=== PATIENT | male | born 1975 | race Caucasian/White ===

== ENCOUNTER 2016-11-09 20:58 | Emergency (ER) | payer SELFPAY ==
[~2016-11-09] VITALS: Ht 190.5 cm; Wt 127.0 kg
[2016-11-09 21:05] VITALS: BP 135/100
--- NOTE | 2016-11-09 21:30 | NUR ---
TO ER BED 6
[2016-11-09 21:42] LABS: BILIRUBIN,URINE NEGATIVE (NEGATIVE); BLOOD, URINE NEGATIVE (NEGATIVE); LEUKOCYTE ESTERASE ,URINE NEGATIVE (NEGATIVE); NITRITE, URINE NEGATIVE (NEGATIVE); PROTEIN,URINE NEGATIVE (NEGATIVE); UGLUCOSE NEGATIVE (NEGATIVE); UROBILINOGEN,URINE 0.2 EU/dL (0.2 - 1)
[2016-11-09 21:43] LABS: APPEARANCE,URINE CLEAR (CLEAR); COLOR,URINE STRAW (YELLOW)
--- NOTE | 2016-11-09 21:43 | NUR ---
41 Y/O M W/C/O S/P FALL AT 1800 TODAY FROM THE ROOF. DENIES ANY LOC, OR DIZYNESS. PT ALERT AND ORIENTED X 4, NO S/S OF DISTRESS NOTED.
[2016-11-09 21:45] LABS: BACTERIA,URINE None Seen /HPF (None Seen); RBC,URINE NONE SEEN /HPF (0-5); SQUAMOUS EPITHELIAL CELL,UR 0-3 (FEW) /LPF (0-3 (FEW)); WBC,URINE NONE SEEN /HPF (0-5)
[2016-11-09] MEDS ORDERED: HYDROmorphone PFS 2 MG/ML SYR IM ONE (22:05)
--- NOTE | 2016-11-09 23:08 | NUR ---
PT RESTING IN BED AWATING FOR CT RESULTS, NO S/S OF DISTRESS NOTED. VSS.
[2016-11-09 23:34] VITALS: BP 119/76
--- NOTE | 2016-11-09 23:34 | NUR ---
Patient discharged with v/s stable. Written and verbal after care instructions given and explained. Patient alert, oriented and verbalized understanding of instructions. Ambulatory with steady gait. All questions addressed prior to discharge. ID band removed. Patient advised to follow up with PMD OR RETURN TO ER IF CONDITION WORSENS. Rx of PERCOCET given. Patient educated on indication of medication including possible reaction and side effects. Opportunity to ask questions provided and answered.
== END 2016-11-09 23:34 | disposition home or self-care (01) ==
LOC: MED 20:58
DX: S20.212A Contusion of left front wall of thorax, initial encounter (principal); R03.0 Elevated blood-pressure reading, without diagnosis of hypertension; M79.602 Pain in left arm; W11.XXXA Fall on and from ladder, initial encounter; Y93.89 Activity, other specified; Y92.89 Other specified places as the place of occurrence of the external cause; Y99.8 Other external cause status
CPT/HCPCS: 71250; 72125; 74176; 81001; 96372; 99285; J1170; J7030

== ENCOUNTER 2016-11-13 21:03 | Emergency (ER) | payer SELFPAY ==
[~2016-11-13] VITALS: Ht 190.5 cm; Wt 122.5 kg
[2016-11-13 21:19] VITALS: BP 150/93
--- NOTE | 2016-11-13 22:52 | NUR ---
PATIENT LEFT WITHOUT BEING SEEN BY DR. FRAGA. NO FURTHER CARE PROVIDED FOR PATIENT.
== END 2016-11-13 22:52 | disposition left against medical advice (07) ==
LOC: MED 21:03
DX: R52 Pain, unspecified (principal); Z53.21 Procedure and treatment not carried out due to patient leaving prior to being seen by health care provider

== ENCOUNTER 2016-11-14 21:32 | Emergency (ER) | payer SELFPAY ==
[~2016-11-14] VITALS: Ht 190.5 cm; Wt 122.5 kg
[2016-11-14 21:46] VITALS: BP 151/85
--- NOTE | 2016-11-14 22:20 | NUR ---
PATIENT LEFT WITHOUT BEING SEEN BY DR. CHENG. NO FURTHER CARE PROVIDED FOR PATIENT.
--- NOTE | 2016-11-14 23:04 | NUR ---
Rihcard cueto in [facility] - 11/14/16 at 2334 by JOÃO PATIENT LEFT WITHOUT BEING SEEN BY DR. CHENG. NO FURTHER CARE PROVIDED FOR PATIENT.
== END 2016-11-14 22:20 | disposition left against medical advice (07) ==
LOC: MED 21:32
DX: Z91.81 History of falling (principal); Z53.21 Procedure and treatment not carried out due to patient leaving prior to being seen by health care provider

== ENCOUNTER 2020-04-11 20:00 | Emergency (ER) | payer MEDICAID ==
[~2020-04-11] VITALS: Ht 190.5 cm; Wt 126.1 kg
[2020-04-11 20:15] VITALS: BP 135/77
[2020-04-11 20:25] VITALS: BP 135/77
[2020-04-11] MEDS: MORPHINE SULFATE 4 MG/ML SYR IM ONE ×2 (20:47→21:51)
== END 2020-04-11 22:00 | disposition home or self-care (01) ==
LOC: MED 20:00
DX: M54.5 Low back pain (principal); I10 Essential (primary) hypertension; Z98.1 Arthrodesis status; Z53.33 Arthroscopic surgical procedure converted to open procedure
CPT/HCPCS: 72072; 72110; 96372; 99284; J2270; Q0092

== ENCOUNTER 2021-03-15 22:21 | Emergency (ER) | payer MEDICAID ==
[~2021-03-15] VITALS: Ht 190.5 cm; Wt 113.4 kg
[2021-03-15 22:44] VITALS: BP 129/78
--- NOTE | 2021-03-15 22:47 | NUR ---
TO LOBBY A/W BED AMBULATORY
--- NOTE | 2021-03-15 23:05 | NUR ---
PATIENT RETRUNED FROM XRAY TO LOBBY.
--- NOTE | 2021-03-16 02:25 | NUR ---
SEEN AND EXAMINED BY SANDRA.
[2021-03-16 02:35] VITALS: BP 122/80
--- NOTE | 2021-03-16 02:35 | NUR ---
Patient discharged with v/s stable. Written and verbal after care instructions given and explained. Patient alert, oriented and verbalized understanding of instructions. Ambulatory with steady gait. All questions addressed prior to discharge. ID band removed. Patient advised to follow up with PMD. Rx of LIDOCAINE PATCH, OXYCODONE given. Patient educated on indication of medication including possible reaction and side effects. Opportunity to ask questions provided and answered.
[2021-03-16] MEDS ORDERED: LID5T TP (02:44)
[2021-03-16] MEDS ORDERED: OXYC15TA2 PO (02:44)
== END 2021-03-16 02:35 | disposition home or self-care (01) ==
LOC: MED 22:21
DX: S22.31XA Fracture of one rib, right side, initial encounter for closed fracture (principal); M54.5 Low back pain; I10 Essential (primary) hypertension; Z79.899 Other long term (current) drug therapy; W18.09XA Striking against other object with subsequent fall, initial encounter; Y93.01 Activity, walking, marching and hiking; Y92.89 Other specified places as the place of occurrence of the external cause; Y99.8 Other external cause status
CPT/HCPCS: 71101; 99283

== ENCOUNTER 2021-11-23 04:25 | Emergency (ER) | payer MEDICAID ==
[~2021-11-23] VITALS: Ht 190.5 cm; Wt 113.4 kg
[~2021-11-23 04:25] MED LIST: LID5T TP; OXYC15TA2 PO
[2021-11-23 04:26] VITALS: BP 124/70
--- NOTE | 2021-11-23 05:12 | NUR ---
PATIENT BIB SELF WITH COMPLAINT OF BACK PAIN HE RATES 9/10 AFTER SUFFERING A FALL TO HIS BACK ABOUT 6 HOURS AGO. PT STATES HE HAS HAD ABOUT 7 BACK FUSSION SURGERIES WITH THE LAST ONE DONE ON APRIL 2021. PT TOOK ORAL MORPHINE AT HOME BUT DID NOT HELP WITH THE PAIN, PT ALSO TRIED LIDOCAINE PATCH WITH NO RELIEF. PMH: HTN, BIPOLAR ALLERGIES: NKA
[2021-11-23] MEDS ORDERED: KETOROLAC 60 MG/2 ML VIAL IM ONE (05:20)
[2021-11-23] MEDS ORDERED: IBUP-2218 PO (05:20)
--- NOTE | 2021-11-23 05:35 | NUR ---
patient refused medication. SANDRA Norton made aware
--- NOTE | 2021-11-23 05:36 | NUR ---
PATIENT ELOPED FROM FACILITY. DISCHARGE INSTRUCTIONS NOT GIVEN TO PATIENT. DR. MARSHALL NOTIFIED.
--- NOTE | 2021-11-23 05:36 | NUR ---
PT WALKED OUT OF ER, [place] @ [id number]
== END 2021-11-23 05:36 | disposition left against medical advice (07) ==
LOC: MED 04:25
DX: M54.50 Low back pain, unspecified (principal); I10 Essential (primary) hypertension; F31.9 Bipolar disorder, unspecified; Z79.1 Long term (current) use of non-steroidal anti-inflammatories (NSAID); Z79.899 Other long term (current) drug therapy; Z79.891 Long term (current) use of opiate analgesic
CPT/HCPCS: 72128; 99284

== ENCOUNTER 2021-12-27 00:19 | Emergency (ER) | payer MEDICAID ==
[~2021-12-27] VITALS: Ht 190.5 cm; Wt 114.8 kg
[~2021-12-27 00:19] MED LIST changes: +IBUP-2218 PO
[2021-12-27 00:27] VITALS: BP 125/71
--- NOTE | 2021-12-27 00:32 | NUR ---
PATIENT TO LOBBY
--- NOTE | 2021-12-27 00:50 | NUR ---
PATIENT LEFT WITHOUT BEING SEEN BY DR. MARSHALL. NO FURTHER CARE PROVIDED FOR PATIENT.PATIENT DOESNT WANT TO WAIT
== END 2021-12-27 00:50 | disposition left against medical advice (07) ==
LOC: MED 00:19
DX: M54.2 Cervicalgia (principal); M54.6 Pain in thoracic spine; M25.569 Pain in unspecified knee; R07.81 Pleurodynia; Z53.21 Procedure and treatment not carried out due to patient leaving prior to being seen by health care provider